=== PATIENT | female | born 1985 | race American Indian/Alaskan Native ===

== ENCOUNTER 2020-02-19 21:36 | Emergency (ER) | payer BC ==
[2020-02-19 22:42] VITALS: BP 126/95
[2020-02-19] MEDS ORDERED: AZITHROMYCIN 250 MG TAB PO ONE (23:20)
[2020-02-19] MEDS ORDERED: IBUPROFEN 800 MG TAB PO ONE (23:20)
--- NOTE | 2020-02-19 23:27 | Emergency Department Report ---
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 Symptoms include scratchy burning throat pain is described at 4/10 exacerbated by swallowing. Pain is relieved by nothing. Patient is tolerating p.o. intake without nausea vomiting however. There is some ear pain, patient has history of pharyngitis, and Covid positive previously this year. There is no cough, no shortness of breath, no wheezing, no stridor. - Related Data Previous Rx's Medication Instructions Recorded Last Taken Type Azithromycin 500 mg PO DAILY #5 tablet 02/19/20 Unknown Rx Ibuprofen [Motrin 800 MG tab] 800 mg PO Q8HR PRN #30 tablet 02/19/20 Unknown Rx Allergies Allergy/AdvReac Type Severity Reaction Status Date / Time No Known Allergies Allergy Unverified 02/19/20 21:47 ED Dental HPI - General Chief complaint: Sore Throat Stated complaint: SORE THROAT/RUNNY NOSE Time Seen by Provider: 02/19/20 23:16 Source: patient Mode of arrival: Ambulatory Limitations: No Limitations - Related Data Previous Rx's Medication Instructions Recorded Last Taken Type Azithromycin 500 mg PO DAILY #5 tablet 02/19/20 Unknown Rx Ibuprofen [Motrin 800 MG tab] 800 mg PO Q8HR PRN #30 tablet 02/19/20 Unknown Rx Allergies Allergy/AdvReac Type Severity Reaction Status Date / Time No Known Allergies Allergy Unverified 02/19/20 21:47 ED Review of Systems ROS: Stated complaint: SORE THROAT/RUNNY NOSE Other details as noted in HPI Constitutional: fever, malaise Eyes: denies: eye pain, eye discharge, vision change ENT: throat pain, congestion Respiratory: denies: cough, shortness of breath, wheezing Cardiovascular: denies: chest pain, palpitations Endocrine: no symptoms reported Gastrointestinal: denies: abdominal pain, nausea, diarrhea Genitourinary: denies: urgency, dysuria, discharge Musculoskeletal: denies: back pain, joint swelling, arthralgia Skin: denies: rash, lesions Neurological: denies: headache, weakness, paresthesias Psychiatric: denies: anxiety, depression Hematological/Lymphatic: denies: easy bleeding, easy bruising ED Past Medical Hx - Past Medical History Previous Medical History?: No - Surgical History Past Surgical History?: Yes Additional Surgical History: Hysterectomy, - Social History Smoking Status: Never Smoker Substance Use Type: Alcohol - Medications Home Medications: Home Medications Medication Instructions Recorded Confirmed Last Taken Type Azithromycin 500 mg PO DAILY #5 tablet 02/19/20 Unknown Rx Ibuprofen [Motrin 800 MG tab] 800 mg PO Q8HR PRN #30 tablet 02/19/20 Unknown Rx ED Physical Exam - General Limitations: No Limitations General appearance: alert, in no apparent distress - Head Head exam: Present: atraumatic, normocephalic - Eye Eye exam: Present: normal appearance, EOMI Pupils: Present: normal accommodation - ENT ENT exam: Present: mucous membranes moist, TM's normal bilaterally, normal external ear exam - Expanded ENT Exam Expanded Ear exam: Present: normal external inspection Throat exam: Positive: tonsillar erythema, tonsillomegaly, tonsillar exudate. Negative: R peritonsillar mass, L peritonsillar mass - Neck Neck exam: Present: normal inspection, full ROM, lymphadenopathy. Absent: tenderness, meningismus, thyromegaly - Respiratory Respiratory exam: Present: normal lung sounds bilaterally. Absent: respiratory distress, wheezes, stridor, chest wall tenderness - Cardiovascular Cardiovascular Exam: Present: regular rate, normal rhythm, normal heart sounds. Absent: systolic murmur, diastolic murmur, rubs, gallop - GI/Abdominal GI/Abdominal exam: Present: soft, normal bowel sounds. Absent: distended, tenderness, guarding, rebound, rigid, bruit, hernia - Rectal Rectal exam: Present: deferred - Extremities Exam Extremities exam: Present: normal inspection, full ROM. Absent: tenderness - Back Exam Back exam: Present: normal inspection, full ROM. Absent: tenderness - Neurological Exam Neurological exam: Present: alert, oriented X3, CN II-XII intact, normal gait - Expanded Neurological Exam Expanded Patient oriented to: Present: person, place, time Best Eye Response ([place]): (4) open spontaneously Best Motor Response ([place]): (6) obeys commands Best Verbal Response ([place]): (5) oriented [place] Total: 15 - Psychiatric Psychiatric exam: Present: normal affect, normal mood - Skin Skin exam: Present: warm, dry, intact, normal color. 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 pt dc'd in stable condition at this time. Critical care attestation.: If time is entered above; I have spent that time in minutes in the direct care of this critically ill patient, excluding procedure time. ED Disposition Clinical Impression: Pharyngitis Qualifiers: Pharyngitis/tonsillitis etiology: unspecified etiology Qualified Code(s): J02.9 - Acute pharyngitis, unspecified Disposition: DC-01 TO HOME OR SELFCARE Is pt being admited?: No Does the pt Need Aspirin: No Condition: Stable Instructions: Pharyngitis (ED) Prescriptions: Azithromycin 500 mg PO DAILY #5 tablet Ibuprofen [Motrin 800 MG tab] 800 mg PO Q8HR PRN #30 tablet PRN Reason: pain fever Referrals: KOFFI NEGRO MD [Staff Physician] - 3-5 Days Forms: Work/School Release Form(ED) Time of Disposition: 23:24
== END 2020-02-19 23:35 | disposition home or self-care (01) ==
LOC: ED 21:36
DX: J02.9 Acute pharyngitis, unspecified (principal); R50.9 Fever, unspecified
CPT/HCPCS: 99282

== ENCOUNTER 2020-09-12 19:44 | Emergency (ER) | payer BC ==
--- NOTE | 2020-09-12 20:42 | XRay Report ---
RIGHT SHOULDER 3 VIEWS INDICATION / CLINICAL INFORMATION: Right shoulder injury playing basketball on Tuesday. Worsening pain since Tuesday with difficulty moving the right shoulder. COMPARISON: None available. FINDINGS: BONES / JOINT(S): The joint spaces are well-maintained. No significant arthritis. There is no evidenc e of fracture or subluxation. SOFT TISSUES: No significant abnormality. ADDITIONAL FINDINGS: The visualized right lung is clear. IMPRESSION: No acute abnormality. Signer Name: Jose De Jesus Chavis MD Signed: 09/12/2020 8:38 PM Workstation Name: [id number]
--- NOTE | 2020-09-12 21:29 | Emergency Department Report ---
ED Extremity Problem HPI - General Chief complaint: Shoulder Injury Stated complaint: RT SHOULDER PAIN Time Seen by Provider: 09/12/20 21:01 Source: patient Mode of arrival: Ambulatory Limitations: No Limitations - History of Present Illness Initial comments: This is a 34-year-old female with no prior medical history who presents the ED complaining of right shoulder pain that began on Tuesday 2 days ago. Patient states that on Tuesday 6 days prior she was playing basketball without any injuries. Patient states that few days after Tuesday she started to return and bit her shoulder pain and got worse Tuesday and got even worse yesterday. Patient states that she had pain with elevating and moving the shoulder. Patient states that she did not sustain any falls or trauma to the shoulder. States that pain is localized to the anterior and posterior aspect of the shoulder. She denies any erythema swelling of the shoulder joint. MD Complaint: extremity pain - Related Data Previous Rx's Medication Instructions Recorded Last Taken Type Azithromycin 500 mg PO DAILY #5 tablet 02/19/20 Unknown Rx Ibuprofen [Motrin 800 MG tab] 800 mg PO Q8HR PRN #30 tablet 02/19/20 Unknown Rx Acetaminophen/Codeine [Tylenol 1 tab PO Q6H #10 tab 09/12/20 Unknown Rx /Codeine # 3 tab] Diclofenac Dr [Shanna Langston] 75 mg PO BID #30 tablet 09/12/20 Unknown Rx Metaxalone [Skelaxin] 800 mg PO TID #20 tablet 09/12/20 Unknown Rx Allergies Allergy/AdvReac Type Severity Reaction Status Date / Time No Known Allergies Allergy Unverified 02/19/20 21:47 ED Review of Systems ROS: Stated complaint: RT SHOULDER PAIN Other details as noted in HPI Comment: All other systems reviewed and negative ED Past Medical Hx - Past Medical History Previous Medical History?: Yes Hx Kidney Stones: Yes - Surgical History Additional Surgical History: Hysterectomy,. Right knee. Left jaw. Left ovary - Social History Smoking Status: Current Every Day Smoker Substance Use Type: None - Medications Home Medications: Home Medications Medication Instructions Recorded Confirmed Last Taken Type Azithromycin 500 mg PO DAILY #5 tablet 02/19/20 Unknown Rx Ibuprofen [Motrin 800 MG tab] 800 mg PO Q8HR PRN #30 tablet 02/19/20 Unknown Rx Acetaminophen/Codeine [Tylenol 1 tab PO Q6H #10 tab 09/12/20 Unknown Rx /Codeine # 3 tab] Diclofenac Dr [Voltaren Dr] 75 mg PO BID #30 tablet 09/12/20 Unknown Rx Metaxalone [Skelaxin] 800 mg PO TID #20 tablet 09/12/20 Unknown Rx ED Physical Exam - General Limitations: No Limitations General appearance: alert, in no apparent distress - Head Head exam: Present: atraumatic, normocephalic - Eye Eye exam: Present: normal appearance - ENT ENT exam: Present: mucous membranes moist - Neck Neck exam: Present: normal inspection - Respiratory Respiratory exam: Present: normal lung sounds bilaterally. Absent: respiratory distress - Cardiovascular Cardiovascular Exam: Present: regular rate, normal rhythm. Absent: systolic murmur, diastolic murmur, rubs, gallop - GI/Abdominal GI/Abdominal exam: Present: soft, normal bowel sounds - Extremities Exam Extremities exam: Present: normal inspection - Expanded Upper Extremity Exam Right General: Present: normal inspection Shoulder Exam: Present: normal inspection, tenderness, other (Pain with range of motion). Absent: full ROM, swelling, abrasion, laceration Upper Arm exam: Present: normal inspection, full ROM. Absent: tenderness Elbow exam: Present: normal inspection, full ROM. Absent: tenderness, swelling, abrasion Forearm Wrist exam: Present: normal inspection, full ROM. Absent: tenderness, swelling Hand Wrist exam: Present: normal inspection, full ROM. Absent: tenderness, swelling Neuro motor exam: Present: wrist extension intact Vascular: Absent: vascular compromise - Back Exam Back exam: Present: normal inspection, full ROM - Neurological Exam Neurological exam: Present: alert, oriented X3 - Psychiatric Psychiatric exam: Present: normal affect, normal mood - Skin Skin exam: Present: warm, dry, intact, normal color. Absent: rash ED Course Vital Signs 09/12/20 09/12/20 19:57 22:00 Temperature 98.0 F 98.2 F Pulse Rate 80 68 Respiratory 16 15 Rate Blood Pressure 127/86 Blood Pressure 116/62 [Left] O2 Sat by Pulse 99 100 Oximetry ED Medical Decision Making - Radiology Data Radiology results: report reviewed, image reviewed RIGHT SHOULDER 3 VIEWS INDICATION / CLINICAL INFORMATION: Right shoulder injury playing basketball on Tuesday. Worsening pain since Tuesday with difficulty moving the right shoulder. COMPARISON: None available. FINDINGS: BONES / JOINT(S): The joint spaces are well-maintained. No significant arthritis. There is no evidence of fracture or subluxation. SOFT TISSUES: No significant abnormality. ADDITIONAL FINDINGS: The visualized right lung is clear. IMPRESSION: No acute abnormality. Signer Name: Ravinder Chavis MD Signed: 09/12/2020 8:38 PM Workstation Name: [id number] Transcribed By: RT Dictated By: Ravinder Chavis MD Electronically Authenticated By: Ravinder Chavis MD Signed Date/Time: 09/12/202037 DD/ 36 TD/TT: - Medical Decision Making This 34-year-old female presents to ED complaining shoulder pain secondary to tendinitis. X-ray shows no acute findings. Discussed x-ray findings with the patient. Discussed with patient follow-up with primary care physician. Discussed rest ice application to the shoulder joint. Patient was in no acute distress patient received pain medication in the ED Patient had no neurological deficit throughout ED stay. Critical care attestation.: If time is entered above; I have spent that time in minutes in the direct care of this critically ill patient, excluding procedure time. ED Disposition Clinical Impression: Right shoulder tendonitis, Shoulder pain Disposition: DC-01 TO HOME OR SELFCARE Is pt being admited?: No Does the pt Need Aspirin: No Condition: Stable Instructions: Shoulder Pain, How to Use Cold Therapy, [id number], Joint Pain, [id number] Additional Instructions: Make sure to follow up with the orthopedic Dr. Thibodeaux as discussed. Take all your medications as you've been prescribed. If you have any worsening symptoms or develop new symptoms please return to ED immediately. Prescriptions: Metaxalone [Skelaxin] 800 mg PO TID #20 tablet Acetaminophen/Codeine [Tylenol /Codeine # 3 tab] 1 tab PO Q6H #[address] [Holliearedannie Langston] 75 mg PO BID #30 tablet Referrals: PRIMARY CAREMD [Primary Care Provider] - 3-5 Days RAVINDER THIBODEAUX MD [Staff Physician] - 3-5 Days Forms: Accompanied Note, Work/School Release Form(ED) Time of Disposition: 21:41
[2020-09-12] MEDS ORDERED: dexAMETHasone 20 MG/5 ML VIAL IM ONE (21:39)
[2020-09-12 22:25] VITALS: BP 116/62
== END 2020-09-12 22:15 | disposition home or self-care (01) ==
LOC: ED 19:44 → EEVIPCON 19:44 → ED 22:15
DX: M77.8 Other enthesopathies, not elsewhere classified (principal); M25.511 Pain in right shoulder; F17.200 Nicotine dependence, unspecified, uncomplicated; Z90.710 Acquired absence of both cervix and uterus; Z98.890 Other specified postprocedural states; Z79.899 Other long term (current) drug therapy; X58.XXXA Exposure to other specified factors, initial encounter; Y93.67 Activity, basketball; Y92.89 Other specified places as the place of occurrence of the external cause; Y99.8 Other external cause status
CPT/HCPCS: 73030; 96372; 99283; J1100